=== PATIENT | male | born 1980 | race African-American/Black ===

== ENCOUNTER 2020-07-07 11:08 | Emergency (ER) | payer SELFPAY ==
[2020-07-07 11:24] VITALS: BP 146/98; PULSE 74; RESP 20; TEMP 36.9; O2SAT 100
--- NOTE | 2020-07-07 11:51 | ED.EYEPROB ---
HPI - Eye Problem General Chief complaint: Eye Problems Stated complaint: wakes up with eyes matted Time Seen by Provider: 07/07/20 11:36 Source: patient and RN notes reviewed Mode of arrival: ambulatory Limitations: no limitations History of Present Illness HPI Narrative: Patient presents today complaining of bilateral eye matting when he woke up this morning, with bilateral itching and increased tearing. No foreign body sensation, no redness, no photophobia, no pain, no pus drainage.Patient denies any recent illness or allergy symptoms. No known exposure to COVID-19. He has been using [id number] Visine drops with mild short-term relief. Related Data Home Medications Medication Instructions Recorded Confirmed Visine-A 07/07/20 Allergies Allergy/AdvReac Type Severity Reaction Status Date / Time No Known Allergies Allergy Verified 05/15/14 18:10 Review of Systems Review of Systems: Narrative: CONSTITUTIONAL: Denies body aches, fever, chills, or sweats. EYES: Denies visual changes, redness. +Increased tearing, bilateral itching, Matting ENT: Denies rhinorrhea, congestion, sore throat, or otalgia. CARDIOVASCULAR: Denies chest pain, palpitations, or edema. RESPIRATORY: Denies cough or dyspnea. GASTROINTESTINAL: Denies abdominal pain, nausea, vomiting, or diarrhea. GENITOURINARY: Denies dysuria or hematuria. SKIN: Denies rash, itching, or wounds. MUSCULOSKELETAL: Denies back pain, joint pain, or myalgia. NEUROLOGIC: Denies headache, numbness, tingling, or weakness. PSYCH: Denies depression or anxiety. PMFSH Comments At time of signature, I have reviewed and agree with nursing past medical, surgical, social and family history unless otherwise noted. Please see nursing chart for further information. There is no relevant family history pertinent to the presenting complaint Exam Narrative: Exam Narrative: GENERAL: Well-appearing, well-nourished, and in no acute distress. HEAD: Normocephalic, atraumatic. EYES: EOMI. PERRL. Bilateral erythematous conjunctivae with increased tearing. No matting noted at this time. No purulent discharge noted. Lids normal. ENT: Mucous membranes pink and moist. Nares clear. No rhinorrhea. NECK: Normal AROM. Supple. No lymphadenopathy. CHEST: No respiratory distress. EXTREMITIES: Normal range of motion. No edema. SKIN: Warm, dry, no rash. Capillary refill normal. Normal skin turgor. NEURO: No focal deficits. Alert and oriented x3. Gait steady. PSYCH: Normal affect. No signs of depression or anxiety. Course Vital Signs Vital signs: Vital Signs Temperature 98.4 F 07/07/20 11:24 Pulse Rate 74 07/07/20 11:24 Respiratory Rate 20 07/07/20 11:24 Blood Pressure 146/98 H 07/07/20 11:24 Pulse Oximetry 100 07/07/20 11:24 Temperature 98.4 F 07/07/20 11:24 Pulse Rate 74 07/07/20 11:24 Respiratory Rate 20 07/07/20 11:24 Blood Pressure 146/98 H 07/07/20 11:24 Pulse Oximetry 100 07/07/20 11:24 Reviewed. Pt has been instructed to follow up with his PCP regarding his elevated blood pressure today. MDM - Eye Problem Differential Diagnosis Differential diagnosis: Likely corneal abrasion, conjunctivitis and other (Blepharitis, stye) Critical Care Time Critical Care Time Critical Care Time: No Discharge Plan Discharge Clinical Impression: Acute allergic conjunctivitis of both eyes Patient Disposition: Home, Self-Care Condition: Stable Instructions: Conjunctivitis (ED) Additional Instructions: Your symptoms are likely due to Allergic pinkeye. Please purchase an [id number] antihistamine eyedrop such as Pataday or Zaditor and follow directions on the bottle. You may also consider taking a daily antihistamine such as Zyrtec, Claritin, or Ryanne. Please follow-up with your PCP if symptoms worsen. Your blood pressure was elevated above 120/80 today at Urgent Care. This puts you above the threshold for follow up. Please robby
== END 2020-07-07 12:01 | disposition home or self-care (01) ==
PROVIDERS: Emergency Provider Nurse Practitioner
DX: H10.13 Acute atopic conjunctivitis, bilateral (principal)
CPT/HCPCS: 99211; G0463

== ENCOUNTER 2021-07-09 15:16 | Emergency (ER) | payer OTHER, SELFPAY ==
--- NOTE | 2021-07-09 15:21 | ED.MALEGU ---
HPI - Male Genitourinary General Chief complaint: Urogenital-Male Stated complaint: STD Expousre Time Seen by Provider: 07/09/21 15:23 Source: patient and RN notes reviewed History of Present Illness HPI Narrative: Patient is a 40-year-old male who presents the urgent care with complaints of a possible STD. Patient states that he noticed burning with urination last night and his girlfriend told him that she had cheated on him. Patient denies of any penile drainage, fever, nausea or vomiting. Patient's girlfriend did not tell him if she was positive for an STD. No other acute complaints. No acute distress noted. Patient aware of the plan of care. Some parts of this dictation were generated by voice recognition software and may contain typographical and/or grammatical inaccuracies. Related Data Allergies Allergy/AdvReac Type Severity Reaction Status Date / Time No Known Allergies Allergy Verified 07/09/21 15:34 Review of Systems Review of Systems: CONSTITUTIONAL: Denies fever, chills, or sweats. EYES: Denies visual changes, redness, or discharge. ENT: Denies rhinorrhea, congestion, sore throat, or otalgia. CARDIOVASCULAR: Denies chest pain, palpitations, or edema. RESPIRATORY: Denies cough or dyspnea. GASTROINTESTINAL: Denies abdominal pain, nausea, vomiting, or diarrhea. GENITOURINARY: Reports of dysuria SKIN: Denies rash or itching. MUSCULOSKELETAL: Denies back pain, joint pain, or myalgia. NEUROLOGIC: Denies headache, numbness, or weakness. All other systems reviewed are negative, except as documented in HPI. PMFSH Comments At the time of my signature, I reviewed and agree with the nursing past medical, surgical, social, and family history. There is no relevant family history pertinent to the patient complaint. Exam Narrative: GENERAL: This is a well-nourished, well-developed patient, in no apparent distress. HEAD: normocephalic, atraumatic. EYES: PERRL. Sclera clear/white. Vision is grossly intact. EARS: External ears normal NOSE: External nose normal with no obvious nasal discharge, nares without redness, no rhinorrhea. THROAT: Mucous membranes moist NECK: Neck supple CARDIOVASCULAR: Regular rate and rhythm without murmurs, gallops, or rubs. RESPIRATORY: Clear to auscultation. Breath sounds equal bilaterally. No wheezes, rales, or rhonchi. SKIN: warm, intact with no suspicious lesions or rash, good texture and turgor. NEURO: awake, alert, and oriented to person, place and time. There were no obvious focal neurologic abnormalities. EXTREMITIES: No clubbing, cyanosis, or edema. Course Vital Signs Vital signs: Vital Signs Temperature 98.1 F 07/09/21 15:36 Pulse Rate 91 07/09/21 15:36 Respiratory Rate 18 07/09/21 15:36 Blood Pressure 159/92 H 07/09/21 15:36 Pulse Oximetry 100 07/09/21 15:36 Temperature 98.1 F 07/09/21 15:36 Pulse Rate 91 07/09/21 15:36 Respiratory Rate 18 07/09/21 15:36 Blood Pressure 159/92 H 07/09/21 15:36 Pulse Oximetry 100 07/09/21 15:36 Reviewed?patient is informed that they may have pre-hypertension or hypertension based on a blood pressure reading in the department. I recommend the patient call the primary care provider listed on their discharge instructions or a physician of their choice this week to arrange follow-up for further evaluation of possible pre-hypertension or hypertension. MDM - Male Genitourinary MDM Narrative Medical decision making narrative: Reviewed lab results with the patient. He is aware that urine analysis may be indicative of a urinary tract infection. Those could be reasons for symptoms however considering that you have possible STD exposure, will treat as requested. Advised the patient to complete the oral antibiotic regimen as prescribed. Be sure to eat and drink with medications. Patient is aware that he has been treated for only trichomonas, gonorrhea and chlamydia. If you would like a full gamut of testing you will need to fo
[2021-07-09 15:36] VITALS: BP 159/92; PULSE 91; RESP 18; TEMP 36.7; O2SAT 100
[2021-07-09] MEDS: cefTRIAXone 500 MG VIAL IM (15:47)
== END 2021-07-09 16:06 | disposition home or self-care (01) ==
PROVIDERS: Emergency Provider Nurse Practitioner Family; PCP Emergency Medicine
CPT/HCPCS: 81003; 87086; 87491; 87591; 87661; 96372; 99213; G0463; J0696

== ENCOUNTER 2023-07-24 16:31 | Emergency (ER) | payer BC, SELFPAY ==
--- NOTE | ~2023-07-24 | XR_ITS ---
EXAMINATION: XR chest 1V portable DATE: 07/24/2023 17:19 INDICATION: Chest and right upper back pain TECHNIQUE: frontal view of the chest was obtained. COMPARISON: None FINDINGS: The lungs are clear with no focal airspace opacities, pulmonary edema, pleural effusion or pneumothor ax. The cardiomediastinal silhouette is normal. There are bridging osteophytes at multiple levels con sistent with diffuse idiopathic skeletal hyperostosis (DISH). IMPRESSION: 1. No acute cardiopulmonary disease. Reviewed, dictated and finalized at location A. 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
[2023-07-24 16:38] VITALS: BP 145/80; PULSE 90; RESP 18; TEMP 36.6; O2SAT 99
--- NOTE | 2023-07-24 17:08 | ED.BACK ---
HPI - Back Pain/Injury General Chief Complaint: Back Pain/Injury Stated Complaint: back pain Time Seen by Provider: 07/24/23 16:47 History of Present Illness HPI Narrative: 42-year-old male presenting to the emergency department for evaluation of right flank and right-sided back pain. Patient reports the pain has been ongoing for the last week. Patient denies any urinary pain and denies any prior history of ureteral calculi. Patient denies any falls or injuries. Patient denies any coughs colds or recent illness. Patient states the pain has been ongoing for a week and has been worsening. Patient states he has not taken any medications to help with this. Related Data Allergies Allergy/AdvReac Type Severity Reaction Status Date / Time No Known Allergies Allergy Verified 07/24/23 16:32 Review of Systems Review of Systems: All systems reviewed & are unremarkable except as noted in HPI and below Exam Narrative: APPEARANCE: Well appearing, no pain, no distress, well-nourished. HEAD: normocephalic, atraumatic. EYES: PERRLA/EOMI, conjunctivae clear. NOSE: Normal no drainage EARS:TMS clear with good light reflex. THROAT: Pharynx clear, no exudate. NECK: Supple. No adenopathy, no masses. RESPIRATORY: Airway patent, respirations nonlabored. Clear to auscultation bilaterally, no rales, rhonchi, wheezing. CARDIOVASCULAR: Regular rate and rhythm without murmurs rubs or gallops. ABDOMINAL: Soft, nontender, nondistended, normal bowel sounds MUSCULOSKELETAL: right-sided paraspinal muscular tenderness NEURO: Alert. Cranial nerves II through XII intact. grossly intact SKIN: Warm, dry. Normal Color Course Course Emergency Course: 42-year-old male presenting emergency department for evaluation of back pain. Patient denies any urinary symptoms. UA did have somehow a blood cells but no evidence of hematuria. Low concern for renal calculi. Urine cultures pending. Chest x-ray shows no acute abnormality. Patient does have reproducible paraspinal muscular tenderness to palpation. Patient is being treated as a muscular strain. Patient was updated on results of the workup patient was comfortable with plan for discharge and close follow-up. Vital Signs Vital signs: Vital Signs Temperature 98 F 07/24/23 16:38 Pulse Rate 90 07/24/23 16:38 Respiratory Rate 18 07/24/23 16:38 Blood Pressure 145/80 H 07/24/23 16:38 Pulse Oximetry 99 07/24/23 16:38 Oxygen Delivery Room Air 07/24/23 16:38 Temperature 98 F 07/24/23 16:38 Pulse Rate 90 07/24/23 16:38 Respiratory Rate 18 07/24/23 16:38 Blood Pressure 145/80 H 07/24/23 16:38 Pulse Oximetry 99 07/24/23 16:38 Oxygen Delivery Room Air 07/24/23 16:38 MDM - Back Pain/Injury Lab Data Attestation: I reviewed the patient's lab results. Labs: Lab Results 07/24/23 Range/Units 17:14 Urine Color Dark yellow (Yellow) Urine Appearance Cloudy H (Clear) Urine pH 5.5 (5.0-9.0) Ur Specific [place] 1.028 (1.001-1.035) Urine Protein 1+ H (Negative) mg/dL Urine Glucose (UA) Negative (Negative) mg/dL Urine Ketones Trace H (Negative) mg/dL Ur Blood (Man) Negative (Negative) Urine Nitrate Negative (Negative) Urine Bilirubin Negative (Negative) Urine Urobilinogen 1.0 (<2.0) mg/dL Leukocyte Esterase Rfl Trace H (Negative) VENUS/UL Urine RBC 0-2 (0-2) /hpf Urine WBC 21-50 H /hpf Ur Squamous Epith Cells None seen (Few) /hpf Urine Bacteria None seen /hpf Urine Casts 0-2 Imaging Data Radiologist's impression: Impressions Chest X-Ray 07/24/23 17:22 IMPRESSION: 1. No acute cardiopulmonary disease. Discharge Plan Discharge Clinical Impression: Back pain Patient Disposition: Home, Self-Care Condition: Stable Instructions: Antibiotic Form, Flank Pain (ED), Back Pain (ED) Additional Instructions: Tylenol and ibuprofen for pain control. Flexeril as needed f
[2023-07-24] MEDS: IBUPROFEN 400 MG TABLET 800 MG PO (17:18)
[2023-07-24] MEDS: CYCLOBENZAPRINE HCL 10 MG TABLET PO (17:18)
[2023-07-24 17:25] LABS: Appearance Urine Cloudy (Clear); Bacteria Urine None Seen /hpf; Bilirubin Urine Negative (Negative); Blood Urine Negative (Negative); Color Urine Dark Yellow (Yellow); Glucose Urine UA Negative (Negative); Ketones Urine Trace mg/dL (Negative); Leukocyte Esterase Ur Trace LEU/UL (Negative); Nitrate Urine Negative (Negative); Non Pathogenic Casts 0-2; Protein Urine 1+ mg/dL (Negative); RBC Urine 0-2 /hpf (0-2); Specific Grav Ur 1.028 (1.001-1.035); Squamous Epithelial Cell Urine None seen /hpf (Few); WBC Urine 21-50 /hpf; pH Urine 5.5 (5.0-9.0)
[2023-07-24 17:34] LABS: Add Urine Microscopic? YES
== END 2023-07-24 17:48 | disposition home or self-care (01) ==
PROVIDERS: Emergency Provider Emergency Medicine; PCP Emergency Medicine
DX: M54.9 Dorsalgia, unspecified (principal)
CPT/HCPCS: 71045; 81001; 87086; 87088; 99283; A9270

== ENCOUNTER 2025-01-09 15:30 | Outpatient (CLI) | payer BC, SELFPAY ==
--- NOTE | ~2025-01-09 | XR_ITS ---
EXAM: XR hand LT min 3V, XR hand RT min 3V DATE: 01/09/2025 15:48 HISTORY: M18.9 - Osteoarthritis of first carpometacarpal joint, un... . COMPARISON: None available. FINDINGS: Normal mineralization. No acute fracture or dislocation. Tiny sclerotic bone fragment teddy cent to the anterior and proximal end of the left third middle phalanx, likely old avulsion. No lytic or blastic lesion. Mild scattered degenerative changes, most notably at the bilateral first metacarp al phalangeal joints. Very minimal degenerative change at the bilateral first carpometacarpal joints. Subchondral cyst in the proximal left scaphoid bone. No erosion or periosteal change. Soft tissues w ithin normal limits. No subluxation. IMPRESSION: Mild polyarticular osteoarthritis of the hands. Reviewed, dictated and finalized at location K. IMPRESSION: Mild polyarticular osteoarthritis of the hands.
--- OUTSIDE RECORDS SUMMARY | 2025-01-09 15:37 | XMS_ITS | Clinical Summary ---
Author Organization [facility] Address [address] [place] [address] Care Team Providers Care Wood Processing Worker Name Role Phone Kristian Valente MD Primary Care Provider [phone] Source Comments [facility],non-owned Affiliates and Associated Physician Practices is amultiple site organization consisting of ambulatory clinics and hospital sitesin [place], [place], [place] and [place]. This disclosure is being madepursuant to the Care Everywhere program and may not contain all information available regarding this patient. Last updated 18.[facility] Medications * Be aware that medications may not be up to date on this document. Alwaysverify current medications with the patient. Docusate Sodium (DSS) 100 MG Take 100 mg by mouth BID. 60 capsule 0 08/15/2016 Active HYDROcodone-acet aminophen (NORCO) 5-325 MG tablet Take 1 tablet by mouth q4h PRN (Pain). 40 tablet 0 08/15/2016 Active Active Problems Problem Noted Date Diagnosed Date Obesity 08/14/2016 Pain of left foot 08/14/2016 Injury of left foot 08/13/2016 Family History Medical History Relation Name Comments Diabetes Father Diabetes Paternal Grandfather Cancer Paternal Grandmother Relation Name Status Comments Father Paternal Grandfather Paternal Grandmother Social History Tobacco Use Types Packs/Day Years Used Date Smoking Tobacco: Former Cigarettes Q uit: 07/31/2016 Smokeless Tobacco: Never Alcohol Use Standard Drinks/Week Comments Yes 1 (1 standard drink = 0.6 oz pur e alcohol) Sex and Gender Information Value Date Recorded Sex Assigned at Not on file Legal Sex Male 5:45 PM DIRECTOR OF EPIDEMIOLOGY Gender Identity Not on file Sexual Orientation Not on file Last Filed Vital Signs Vital Sign Reading Time Taken Comments Blood Pressure 152/80 08/15/2016 7:45 AM DIRECTOR OF EPIDEMIOLOGY Pulse 55 08/15/2016 7:45 AM DIRECTOR OF EPIDEMIOLOGY Temperature 36.5 C (97.7 F) 08/15/2016 7:45 AM DIRECTOR OF EPIDEMIOLOGY Respiratory Rate 16 08/15/2016 7:45 AM DIRECTOR OF EPIDEMIOLOGY Oxygen Saturation 98% 08/15/2016 7:45 AM DIRECTOR OF EPIDEMIOLOGY Inhaled Oxygen Concentration - - Weight 137 kg (302 lb) 09/02/2016 8:38 AM DIRECTOR OF EPIDEMIOLOGY Height 185.4 cm (6' 1) 09/02/2016 8:38 AM DIRECTOR OF EPIDEMIOLOGY Body Mass Index 39.84 09/02/2016 8:38 AM DIRECTOR OF EPIDEMIOLOGY Plan of Treatment Health Maintenance Due Date Last Done Comments LIPID TESTING 1980 HEPATITIS C SCREENING 10/26/1998 DTAP/TDAP/TD VACCINES (1 - Tdap) 10/31/1999 HEPATITIS B VACCINE (1 of 3 - 19+ 3-dose series) 10/31/1999 COVID-19 VACCINE ( - 2023-2 5 season) 2024 DEPRESSION SCREENING 08/10/2024 INFLUENZA VACCINE (Season Ended) 2025 ZOSTER VACCINE (1 of 2) 2030 HIV SCREENING Completed 08/14/2016 HIB VACCINE Aged Out No longer eligi ble based on patient's age to complete this topic HPV VACCINE Aged Out No longer eligi ble based on patient's age to complete this topic MENINGOCOCCAL (Group B) VACC INE SHARED DECISION-MAKING Aged Out No longer eligibl e based on patient's age to complete this topic MENINGOCOCCAL GROUPS A/C/Y/W VACCINE Aged Out No longer eligible b ased on patient's age to complete this topic PNEUMOCOCCAL VACCINE Aged Out No long er eligible based on patient's age to complete this topic Procedures Procedure Name Priority Date/Time Associated Diagnosis Comments HIV-1 HIV-2 ANTIGEN/ANTIBODY Routine 08/14/2016 4:15 PM DIRECTOR OF EPIDEMIOLOGY from Last 3 Months or Most Recently Relevant to Health Maintenance Results * HIV-1 HIV-2 ANTIGEN/ANTIBODY (08/14/2016 4:15 PM DIRECTOR OF EPIDEMIOLOGY) HIV Antigen/Antibod y 1 & 2 Non-reacti ve Non-react una [facility] Comment: Neither HIV-1 p24 Antigen nor HIV-1/HIV-2 Antibodies are detected. Blood specimen (specimen) BLOOD SPECIMEN / Unknown 08/14/2016 4:15 PM DIRECTOR OF EPIDEMIOLOGY 08/14/2016 4:30 PM DIRECTOR OF EPIDEMIOLOGY us Sherly Marie BOARD MACHINE SET UP OPERATOR-COSMETIC SALES CONSULTANT LAB - HEMATOLOGY ORDER [place] Final Result [facility] [address] [place] [address] from Last 3 Months or Most Recently Relevant to Health Maintenance Care Teams Wood Processing Worker Relationship Specialty Start Date End Date Kristian Valente MD [address] [facility] [address] [place] [address] PCP - General 04/28/11
--- OUTSIDE RECORDS SUMMARY | 2025-01-09 15:37 | XMS_ITS | Continuity of Care Document ---
Author Organization [facility] Address [address] [place] [address] Phone Care Team Providers Care Gm Name Role Phone Kristian Valente MD Unavailable Unavailable Allergies, Adverse Reactions, Alerts Substance Reaction Status Criticality No Known Allergies Active No Inform ation Medications Medication Instructions Dosage Effective Dates (start - stop) Status Comments Valtrex 1 gram tablet take 1 Tablet by o ral route every 12 hours 1000 MG - Active Zepbound 2.5 mg/0.5 mL subcutaneous pen injector inject (2.5MG) by subcutaneous route every week for 4 weeks 2.5 MG - Active Procedures Procedure Date OFFICE/OUTPATIENT VISIT, EST OFFICE/OUTPATIENT VISIT, EST OFFICE/OUTPATIENT VISIT, EST PREV VISIT, EST, AGE 40-64 PREV VISIT, EST, AGE 40-64 OFFICE/OUTPATIENT VISIT, EST OFFICE/OUTPATIENT VISIT, EST OFFICE/OUTPATIENT VISIT, EST OFFICE/OUTPATIENT VISIT, EST OFFICE/OUTPATIENT VISIT, EST PREV VISIT, EST, AGE 18-39 OFFICE/OUTPATIENT VISIT, EST PREV VISIT, EST, AGE 18-39 OFFICE/OUTPATIENT VISIT, EST OFFICE/OUTPATIENT VISIT, EST OFFICE/OUTPATIENT VISIT, EST PREV VISIT, NEW, AGE 18-39 OFFICE/OUTPATIENT VISIT, NEW OFFICE/OUTPATIENT VISIT, RUST OFFICE/OUTPATIENT VISIT, BANNER Advance Directives Directive Yes / No Effective Date File Name No Information Encounters Encounter Description Practice Location Reason(s) For Visit Diagnoses Date Provider Providers Copied on Encounter OFFICE/OUTPA TIENT VISIT, [facility], [place], operated by [facility], [address], [place], [place], [address], [place] tel:[phone] [facility] HSV II (chief complaint) weight gain1 (chief complaint) Herpes simplex infectionAbnormal weight gain 5 Ambrosio Townsend. [address], [place], [place], [address] , [place]. tel:[phone] Referring Provider: Kristian Valente [address], [place], [place], [address]. tel:[phone] OFFICE/OUTPA TIENT VISIT, [facility], [place], operated by [facility], [address], [place], [place], [address], [place] tel:[phone] [facility] thumb pain1 (chief complaint) HLP (chief complaint) proteinuri a1 (chief complaint) sleep apnea1 (chief complaint) weight1 (chief complaint) ProteinuriaObstruct una sleep apnea hypopneaMixed hyperlipidemiaDe Quervain tenosynovitisAbnorm al weight gain 5 Ambrosio Townsend. [address], [place], [place], [address] , [place]. tel:[phone] Referring Provider: Kristian Valente [address], [place], [place], [address]. tel:[phone] OFFICE/OUTPA TIENT VISIT, [facility], [place], operated [facility], [address], [place], [place], [address], [place] tel:[phone] [facility] ear pain1 (chief complaint) HTN (chief complaint) Essential (primary) hypertensionAcute sinusitis 5 Ambrosio Townsend. [address], [place], [place], [address] , [place]. tel:[phone] Referring Provider: Kristian Valente, [address], [place], [place], [address]. tel:[phone] PREV VISIT, EST, AGE 40-64 [facility], [address], [place], [place], [address], [place] tel:[phone] [facility] Medicine physical (chief complaint) Encounter for general adult medical examination without abnormal findings Sep-0 4 Ambrosio Townsend. [address], [place], [place], [address] , [place]. tel:[phone] Referring Provider: Abad [address], [place], [place], [address]. tel:[phone] PREV VISIT, EST, AGE 40-64 [facility], [address], [place], [place], [address], [place] tel:[phone] [facility] Medicine physical (chief complaint) Encounter for general adult medical exam w abnormal findingsPrimary central sleep apneaEssential (primary) hypertensionAbnorma l weight gainMuscle spasm of back 3 Ambrosio Townsend. [address], [place], [place], [address] , [place]. tel:[phone] Referring Provider: Abad [address], [place], [place], [address]. tel:[phone] OFFICE/OUTPA TIENT VISIT, EST [facility], [address], [place], [place], [address], [place] tel:[phone] [facility] fatigue1 (chief complaint) sleep apnea1 (chief complaint) proteinuri a1 (chief complaint) FatigueProteinuriaS leep apnea 2 Ambrosio Townsend. [address], [place], [place], [address] , [place]. tel:[phone] Referring Provider: Abad [address], [place], [place], [address]. tel:[phone] OFFICE/OUTPA TIENT VISIT, EST [facility], [address], [place], [place], [address], [place] tel:[phone] [facility] fatigue1 (chief complaint) proteinuri a1 (chief complaint) weight loss1 (chief complaint) ProteinuriaFatigueS leep disorderAbnormal weight loss 1 Ambrosio Persaud [address], [place], [place], [address] , [place]. tel:[phone] Referring Provider: Ab[address], [place], [place], [address]. tel:[phone] OFFICE/OUTPA TIENT VISIT, EST [facility], [address], [place], [place], [address], [place] tel:[phone] [facility] cough1 (chief complaint) Viral infectionProteinuri a [address], [place], [place], [address] , [place]. tel:[phone] Referring Provider: Abad [address], [place], [place], [address]. tel:[phone] OFFICE/OUTPA TIENT VISIT, EST [facility], [address], [place], [place], [address], [place] tel:[phone] [facility] sick (chief complaint) proteinuri a1 (chief complaint) Viral infectionProteinuri aAnogenital (venereal) warts [address], [place], [place], [address] , [place]. tel:[phone] Referring Provider: Abad [address], [place], [place], [address]. tel:[phone] PREV VISIT, EST, AGE 18-39 [facility], [address], [place], [place], [address], [place] tel:[phone] [facility] physical (chief complaint) Encounter for general adult medical exam w abnormal findingsAnogenital (venereal) warts 0 Ambrosio Persaud [address], [place], [place], [address] , [place]. tel:[phone] Referring Provider: Abad [address], [place], [place], [address]. tel:[phone] PREV VISIT, EST, AGE 18-39 [facility], [address], [place], [place], [address], [place] tel:[phone] [facility] PHysical (chief complaint) Body mass index (BMI) 40.0-44.9, adultChlamydial infection, unspecifiedUpper respiratory infectionEncounter for general adult medical exam w abnormal findingsLipoma 9 Ambrosio Townsend. [address], [place], [place], [address] , [place]. [phone] Referring Provider: Abad [address], [place], [place], [address]. tel:[phone] OFFICE/OUTPA TIENT VISIT, EST [facility], [address], [place], [place], [address], [place] tel:[phone] [facility] chlamydia1 (chief complaint) Chlamydial infection, unspecified 8 Ambrosio Townsend. [address], [place], [place], [address] , [place]. [phone] Referring Provider: Abad [address], [place], [place], [address]. tel:[phone] OFFICE/OUTPA TIENT VISIT, EST [facility], [address], [place], [place], [address], [place] tel:[phone] [facility] STD (chief complaint) Chlamydial infection, unspecifiedHigh risk bisexual behavior 8 Ambrosio Townsend. [address], [place], [place], [address] , [place]. [phone] Referring Provider: Abad [address], [place], [place], [address]. tel:[phone] PREV VISIT, NEW, AGE 18-39 [facility], [address], [place], [place], [address], [place] tel:[phone] [facility] PHysical (chief complaint) Encounter for general adult medical exam w abnormal findingsPain in left ankleBody mass index (BMI) 40.0-44.9, adultAcute upper respiratory infection, unspecified 8 Ambrosio Townsend. [address], [place], [place], [address] , [place]. tel:[phone] Referring Provider: Kristian Valente, [address], [place], [place], [address]. tel:[phone] OFFICE/OUTPA TIENT VISIT, [facility], [place], operated [facility], [address], [place], [place], [address], [place] tel:[phone] [facility] ankle pain (chief complaint) Dietary surveillance and counselingPain in joint involving ankle and foot 3 Ambrosio Townsend. [address], [place], [place], [address] , [place]. tel:[phone] Referring Provider: Kristian Valente [address], [place], [place], [address]. tel:[phone] OFFICE/OUTPA TIENT VISIT, [facility], [address], [place], [place], [address], [place] tel:[phone] [facility] abrasion (chief complaint) Abrasion, localized 2 Ambrosio Persaud [address], [place], [place], [address] , [place]. tel:[phone] Family History Family Member Type Diagnosis Age At Onset Father Problem (finding) Diabetes mellitus type 2 Mother Problem (finding) Alive and well Brother Problem (finding) Alive and well Payers Payer name Insurance type Covered republican ID Authoriza tion(s) [facility] [id number] Social History Type Description Quantity Date Captured Comments Alcohol Use Details Caffeine Use Details Unknown Tobacco Use Status Smoking Status Heavy tobacco smoker Sex Male Vital Signs Date / Time: Height Weight BMI Pulse Rate Blood Pressure Temperature Respiratory Rate Body Surface Area Head Circumference BMI percentile Pulse Ox Inhaled Ox 9:29 PM 73.00 in 338.00 lbs 44.5 9 kg/m 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 HSV II (chief complaint). Description: Pt has history of HSV II Pt told me he never had outbreak until two days ago Pt notices painful blisters around penial area. Pt denies any drainage Pt denies any penile discharge . weight gain1 (chief complaint). Description: Pt is obese with sleep apnea Pt needs PA for zepbound . Plan Of Treatment Date Type Action Status Goal Depression screening. Due on due Goal Lipid Panel. Due on due Goal Influenza vaccine. Due on due Goal Diabetes Screening. Due on due Goal Td vaccine. Due on due Goal Tdap. Due on due Goal Depression screening. Due on due Goal Lipid Panel. Due on due Goal Influenza vaccine. Due on due Goal Diabetes Screening. Due on due Goal Td vaccine. Due on due Goal Tdap. Due on due Goal Depression screening. Due on due Goal Lipid Panel. Due on due Goal Influenza vaccine. Due on due Goal Diabetes Screening. Due on due Goal Td vaccine. Due on due Goal Tdap. Due on due Goal Tdap. Due on due Goal Td vaccine. Due on due Goal Depression screening. Due on due Goal Lipid Panel. Due on due Goal Influenza vaccine. Due on due Goal Diabetes Screening. Due on due Goal Tdap. Due on due Goal H&P. Due on due Goal Td vaccine. Due on due Goal Depression screening. Due on due Goal Lipid Panel. Due on due Goal Influenza vaccine. Due on due Goal Diabetes Screening. Due on due Goal Diabetes Screening. Due on due Goal Influenza vaccine. Due on due Goal Lipid Panel. Due on due Goal Depression screening. Due on due Goal Tdap. Due on due Goal H&P. Due on due Goal Td vaccine. Due on due Goal H&P. Due on due Goal Tdap. Due on due Goal Depression screening. Due on due Goal Td vaccine. Due on due Goal Diabetes Screening. Due on due Goal Influenza vaccine. Due on due Goal Lipid Panel. Due on 021 due Goal Influenza vaccine. Due on due Goal Td vaccine. Due on due Goal H&P. Due on due Goal Tdap. Due on due Goal Depression screening. Due on due Goal Depression screening. Due on due Goal Tdap. Due on due Goal H&P. Due on due Goal Td vaccine. Due on due Goal Diabetes Screening. Due on due Goal Influenza vaccine. Due on due Goal Tobacco cessation counseling completed Goal Depression screening. Due on due Goal Tdap. Due on due Goal H&P. Due on due Goal Td vaccine. Due on 20 due Goal Diabetes Screening. Due on due Goal Influenza vaccine. Due on due Goal Tobacco cessation counseling completed Goal Tdap. Due on due Goal H&P. Due on due Goal Td vaccine. Due on 19 due Goal Diabetes Screening. Due on due Goal Influenza vaccine. Due on due Goal Abdominal ultrasound. Due on due Goal Depression screening. Due on due Goal Special diet education compl eted Goal Tobacco cessation counseling completed Goal Tdap. Due on due Goal Td vaccine. Due on due Goal Diabetes Screening. Due on due Goal Lipid Panel. Due on due Goal Depression screening. Due on due Goal Diabetes Screening. Due on due Goal Depression screening. Due on due Goal Td vaccine. Due on due Goal Lipid Panel. Due on due Goal Tdap. Due on due Goal Td vaccine. Due on due Goal Diabetes Screening. Due on due Goal Lipid Panel. Due on due Goal Depression screening. Due on due Goal Tdap. Due on due Goal Diabetes Screening. Due on due Goal H&P. Due on due Goal Td vaccine. Due on 13 due Goal Tobacco cessation counseling completed Goal Tobacco cessation counseling completed Referral Ordered: Armani Guerra -[facility] : Plastic Surgery (related to De Quervain tenosynovitis) ordered Referral Referred To: Armani Guerra [address] [place] [address], [phone] Ordered: Referrals: [facility] Phys[facility] : Plastic Surgery. Armani Guerra. Evaluate and treat ordered Referral Ordered: [facility] KID[facility] ordered Referral Ordered: SLEEP STUDY, ATTENDED ordered Referral Ordered: EWA ROLLINS -[facility] : Surgery (related to Anogenital (venereal) warts) ordered Referral Referred To: EWA ROLLINS [address] [place], [place], [phone] Ordered: Referrals: Allopathic & Osteopathic Physicians : Surgery. EWA ROLLINS. Evaluate and treat ordered Referral Ordered: ANKLE XRAY, TWO VIEW Left ordered History Of Present Illness Encounter Date Complaint History Of Prese nt Illness HSV II Pt has history o f HSV II Pt told me he never had outbreak until two days ago Pt notices painful blisters around penial area. Pt denies any drainage Pt denies any penile discharge . weight gain1 Pt is obese with sleep apnea Pt needs PA for zepbound . thumb pain1 Pt c/o bilateral thumb pain near the base an worse with movement. Pt sometimes wakes up at night due to pain Pt denies any paresthesia Pt denies any injury. Pt works with his hand at work all day. Pt denies any swelling Pt states that even turning steering wheel causes sharp pain HLP Pt has mild high TG proteinuria1 Pt has mild prot einuria Pt denies any urinary symptoms sleep apnea1 Pt has sleep washer meat ea Pt uses cpap night and doing ok. Pt feels more energy weight1 Pt is obese Pt h as difficulty losing weight despite diet and exercise . ear pain1 Pt c/o acute ons et of sinus congestion, mild productive cough, right ear muffling for one week Pt denies any fever, sob Pt denies any hemoptysis or sick contact HTN Pt has mild HTN today Pt denies any chest pain or headache physical Pt needs annual physical pt has severe sleep apnea and she has been using cpap 12 CM pressure for over one year and he was doing well until recently He notices more snoring and more fatigue in the morning as well. Pt wants to change cpap settings. He also has been gaining weight as well. Pt denies any other complaints Pt never did lab work physical Pt needs annual physical Pt c/o intermittent right side dull and sharp low back pain for several days. Pt denies any sciatica. Pt denies any urinary symptoms. Pt denies any loss of bowel or bladder control or saddle area paresthesia .Pt denies any injury. Pt has is obese. Pt state that he feels some right lower back tightness, only after long resting. Pt states that he wakes up in the morning and feels some pain and tightness on right side of low back. He states that the discomfort usually goes away with movement. Pt denies any injury. Pt also has sleep apnea Pt uses cpap nightly. Pt states that he feels more energy, less snoring and more alert during the day with cpap. Pt is compliant with cpap nightly. He is applying for life insurance and needs cpap form completed. Pt has mild HTN today Pt denies any chest pain or headache. Pt gained some weight. Pt is not very physically active He denies any other complaints fatigue1 Pt c/o chronic f atigue, especially in the morning after waking up Pt snores heavily at night Pt denies any sob at night ,Pt also feels tired throughout the day pt denies falling asleep while driving Pt denies any dizziness or sob sleep apnea1 Pt has severe sl eep apnea with severe oxygen desaturation during sleep. proteinuria1 Pt has mild prot einuria .Pt denies any urinary symptoms fatigue1 Pt c/o chronic f atigue, especially in the morning after waking up Pt snores heavily at night Pt denies any sob at night ,Pt also feels tired throughout the day pt denies falling asleep while driving Pt denies any dizziness or sob proteinuria1 Pt has proteinur ia. pt denies any urinary symptoms weight loss1 Pt has been inte ntionally losing weight pt denies any nausea, vomiting, early satiety, abd pain, change of bowel, loss of appetite, GERD, blood in stool. Pt has been diet and exercise and losing weight on his own cough1 Pt c/o acute ons et of mild productive cough with clear phlegm since this morning pt denies any sob or fever Pt denies any sore throat Pt denies any loss of taste and smell. Pt denies any fatigue or headache Pt denies any exposure to COVDI-19. Pt does smoke and he sometimes has smoker cough Pt feels that he just has some smoker cough. 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 Pt notices a skin tag left side of scrotum for two months and getting bigger Pt sometimes notices bleeding ,Pt denies any pain or itching Pt denies any other complaints Pt had STD screening done at clinic and is all clean Pt did not do lab from last year . PHysical Pt needs annual physical. Pt c/o sore throat, coughing for two weeks. Pt notices green productive phlegm with coughing. Pt failed OTC meds. pt denies any dysphagia. Pt denies any fever. Pt denies any recent travel or sick contact. Pt c/o nontender subcutaneous nodule around right forearm for several months, Pt denies any pain or size change. pt denies any other complaints chlamydia1 Pt had positvie exposure to chlamydia about 5 days ago. Pt denies any penile discharge or any urinary symptoms. Pt deferred STD teseting. Pt just wants to be treated. Pt got the zithromax yesterday but his g/f threw them away in anger. STD Pt states that fredi lara had unpreotected sex 4 days ago and he was told the day after that she has chlamydia, Pt denies any penile discharge or any burning, frequency, urgency or any pain Pt does not want to be tested for STD. He just wants to be treated for chlamydia PHysical Pt needs annual physical. pt has chronic left leg and ankle pain. Pt has history of ankle fracture with reconstruction 3 years ago from sports injury. Pt has chornic left ankle pain. Pt has pain almost daily and he takes a lot of ibuprofen for pain. Pt wants some pain meds to take PRN. Pt also c/o sore throat, sinus congestion, productive coughing for one week. Pt denies any fever, chill. Pt failed OTC meds. Pt denies any other complaints Instructions Date Instruction Additional Infor eli Special diet education Related t o Body mass index (BMI) 40.0-44.9, adult Increase physical activity Relat ed to Upper respiratory infection Weight management Related to Upp er respiratory infection Prescribed Activity and Exercise Education Related to Dietary Surveillance and Counseling Prescribed Diet Educ ation/Lifestyle Education Regarding Diet Related to Dietary Surveillance and Counseling Weight management Related to Chl amydial infection, unspecified Prescribed Activity and Exercise Education Related to Dietary Surveillance and Counseling Prescribed Diet Educ ation/Lifestyle Education Regarding Diet Related to Dietary Surveillance and Counseling Weight management Related to Chl amydial infection, unspecified Prescribed Activity and Exercise Education Related to Dietary Surveillance and Counseling Prescribed Diet Educ ation/Lifestyle Education Regarding Diet Related to Dietary Surveillance and Counseling Increase physical activity Relat ed to Encounter for general adult medical exam w abnormal findings Weight management Related to Enc ounter for general adult medical exam w abnormal findings Dietary counseling Related to Di etary surveillance counseling Decrease caloric intake Related to Dietary surveillance counseling Assessments Type Assessment Date assessment Herpes simplex infection 2024 assessment Abnormal weight gain Mental Status Date Cognitive Assessment Orientation - [place] ed to time, place, person, situation.
== END 2025-01-09 15:31 | disposition home or self-care (01) ==
PROVIDERS: PCP Emergency Medicine; Visit Provider Plastic Surgery
DX: M19.041 Primary osteoarthritis, right hand (principal); M19.042 Primary osteoarthritis, left hand
CPT/HCPCS: 73130

== ENCOUNTER 2025-05-25 15:44 | Outpatient (CLI) | payer BC, SELFPAY ==
--- NOTE | ~2025-05-25 | US_ITS ---
EXAMINATION: US renal BI, 05/25/2025 16:00 CDT HISTORY: proteinuria Comparison: None Technique: Salazar-scale and color Doppler images were obtained. Findings: KIDNEYS: Renal cortices intact, no solid masses, cysts or calculi, no hydronephrosis. Right Kidney: Right kidney 4.4 x 13.6 x 5.1 cm. Left Kidney: Left kidney 6.7 x 4.9 x 4.9 cm. Bladder: The bladder is unremarkable. . Impression: No acute abnormality. Reviewed, dictated and finalized at location P. Impression: No acute abnormality.
--- OUTSIDE RECORDS SUMMARY | 2025-05-25 17:42 | XMS_ITS | Clinical Summary ---
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 Name Role Phone Unavailable Primary Care Provider Unavailabl e Social History Tobacco Use Types Packs/Day Years Used Date Smoking Tobacco: Never Assessed Sex and Gender Information Value Date Recorded Sex Assigned at Not on file Legal Sex Male 10:22 PM [employer] Gender Identity Not on file Sexual Orientation Not on file Plan of Treatment Health Maintenance Due Date Last Done Comments Annual Physical 10/31/1983 Hepatitis C 1998 DTaP, Tdap and Td Vaccines ( 1 - Tdap) 10/31/1999 Hepatitis B Vaccines (1 of 3 - 19+ 3-dose series) 10/31/1999 HPV Vaccines (1 - 3-dose SCD M series) 10/31/2007 COVID-19 Vaccine (2023-2 5 season) 2025 Influenza Adult (#1) 2025 Meningococcal B Vaccine Aged Out No l onger eligible based on patient's age to complete this topic Meningococcal Vaccine Aged Out No armin cullen eligible based on patient's age to complete this topic Pneumococcal Vaccine: Pediat rics (0 to 5 Years) and At-Risk Patients (6 to 49 Years) Aged Out No longer eligible b ased on patient's age to complete this topic RSV Immunizations Under 20 Months Aged Out No longer eligible based on patient's age to complete this topic
--- OUTSIDE RECORDS SUMMARY | 2025-05-25 17:42 | XMS_ITS | Clinical Summary ---
Author Organization [facility] Address [address] [place] [address] Care Team Providers Care Printing Specialist Name Role Phone Kristian Valente MD Primary Care Provider Source Comments [facility],non-owned Affiliates and Associated Physician Practices is amultiple site organization consisting of ambulatory clinics and hospital sitesin [place], [place], [place] and [place]. This disclosure is being madepursuant to the Care Everywhere program and may not contain all information available regarding this patient. Last updated 18.[facility] Medications * Be aware that medications may [...] on file Legal Sex Male 5:45 PM [employer]ER P[employer]ER Gender Identity Not on file Sexual Orientation Not on file Last Filed Vital Signs Vital Sign Reading Time Taken Comments Blood Pressure 152/80 08/15/2016 7:45 AM FILLER PICKER Pulse 55 08/15/2016 7:45 AM FILLER PICKER Temperature 36.5 C (97.7 F) 08/15/2016 7:45 AM FILLER PICKER Respiratory Rate 16 08/15/2016 7:45 AM FILLER PICKER Oxygen Saturation 98% 08/15/2016 7:45 AM FILLER PICKER Inhaled Oxygen Concentration - - Weight 137 kg (302 lb) 09/02/2016 8:38 AM FILLER PICKER Height 185.4 cm (6' 1) 09/02/2016 8:38 AM FILLER PICKER Body Mass Index 39.84 09/02/2016 8:38 AM FILLER PICKER Plan of Treatment Health Maintenance Due Date Last Done Comments LIPID TESTING 1980 HEPATITIS C SCREENING 10/26/1998 DTAP/TDAP/TD VACCINES (1 - Tdap) 10/31/1999 HEPATITIS B VACCINE (1 of 3 - 19+ 3-dose series) 10/31/1999 HPV VACCINE (1 - 3-dose SCDM series) 10/31/2007 DEPRESSION SCREENING 08/10/2024 COVID-19 VACCINE (1 - 2023-2 5 season) 2025 INFLUENZA VACCINE (#1) 2025 ZOSTER VACCINE (1 of 2) 2030 [...] HIV-1 HIV-2 ANTIGEN/ANTIBODY Routine 08/14/2016 4:15 PM FILLER PICKER from Last 3 Months or Most Recently Relevant to Health Maintenance Results * HIV-1 HIV-2 ANTIGEN/ANTIBODY (08/14/2016 4:15 PM FILLER PICKER) HIV Antigen/Antibod y 1 & 2 Non-reacti ve Non-react una [facility] Comment: Neither HIV-1 p24 Antigen nor HIV-1/HIV-2 Antibodies are detected. Blood specimen (specimen) BLOOD SPECIMEN / Unknown 08/14/2016 4:15 PM FILLER PICKER 08/14/2016 4:30 PM FILLER PICKER us Sherly Marie MUNICIPAL CLERK-PROCESS CHECKER LAB - HEMATOLOGY ORDER [place] Final Result [facility] [address] [phone] from Last 3 Months or Most Recently Relevant to Health Maintenance Care Teams Printing Specialist Relationship Specialty Start Date End Date Kristian Valente MD [address] [id number] PCP - General 04/28/11
== END 2025-05-25 15:45 | disposition home or self-care (01) ==
PROVIDERS: PCP Emergency Medicine; Visit Provider Emergency Medicine
DX: R80.9 Proteinuria, unspecified (principal)
CPT/HCPCS: 76770